=== PATIENT | male | born 1995 | race Caucasian/White ===

== ENCOUNTER 2021-04-20 19:18 | Emergency (ER) | payer OTHER, SELFPAY ==
[2021-04-20 19:31] VITALS: BP 120/66; PULSE 96; RESP 16; TEMP 36.1; O2SAT 99
--- NOTE | 2021-04-20 19:43 | ED.GENADULT ---
HPI - General Adult General Chief complaint: Extremity Problem,Nontraumatic Stated complaint: Rash on ankle Time Seen by Provider: 04/20/21 19:20 Source: patient Mode of arrival: ambulatory Limitations: no limitations History of Present Illness HPI narrative: Patient presents for evaluation of swelling to the right ankle. He indicates symptoms started 2 days ago. He initially sensed some pruritus circumferentially to the right ankle. He looked down and noted swelling to the affected area. He denies any recent trauma. He denies any posterior calf pain. No loss of range of motion. No paresthesias. No significant pain per se. 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 He states he does not inject into the lower extremities. No personal or family history of DVT or PE. He does smoke 1 pack/day. No surgeries within the last 4 weeks. Not on any hormone replacement therapy. Related Data Home Medications Medication Instructions Recorded Confirmed No Home Medications 04/20/21 04/20/21 Allergies Allergy/AdvReac Type Severity Reaction Status Date / Time No Known Allergies Allergy Verified 04/20/21 19:41 Review of Systems Review of Systems: Narrative: CONSTITUTIONAL: Denies fever, chills, or sweats. EYES: Denies visual changes, redness, or discharge. ENT: Denies rhinorrhea, congestion, sore throat, or otalgia. CARDIOVASCULAR: Reports swelling to the right ankle. Denies chest pain, palpitations RESPIRATORY: Denies cough or dyspnea. GASTROINTESTINAL: Denies abdominal pain, nausea, vomiting, or diarrhea. GENITOURINARY: Denies dysuria or hematuria. SKIN: Reports pruritus to right ankle MUSCULOSKELETAL: Denies back pain, joint pain, or myalgia. NEUROLOGIC: Denies headache, numbness, dizziness, or weakness. PSYCHIATRIC: Denies anxiety or depression. [facility] [place] Past Medical History Medical History (Updated 04/20/21 @ 19:53 by ANUSHA Polo, ) Methamphetamine use Surgical History Surgical History No pertinent past surgical history Family History Family History Mother No pertinent past medical history Social History Social History Smoking packs per day: 1 Smoking cigarettes per day: 20.0 Smoking status: Current every day smoker Tobacco type: cigarettes Alcohol intake: current Alcohol use details: socially Substance use: current Substance use type: amphetamines Living arrangements: with family Gender identity (if verbalized by the patient): Male Spiritual care concerns: No Exam Narrative: Exam Narrative: GENERAL: Well-appearing, well-nourished, and in no acute distress. HEAD: Normocephalic, atraumatic. EYES: PERRLA and EOMI. ENT: Nares clear, no rhinorrhea or epistaxis. Mucous membranes moist. Oropharynx without tonsillar hypertrophy exudate or other lesions. Bilateral TMs pearly mcpherson nonbulging NECK: Supple. No adenopathy or masses. No carotid bruits or JVD CHEST: Clear to auscultation. No respiratory distress. No wheezes rales or rhonchi HEART: Regular rate and rhythm. No murmur heard. Normal peripheral pulses. ABDOMEN: Soft, nontender, nondistended, normal active bowel sounds. EXTREMITIES: 1+ nonpitting edema L overlying the right lateral malleolus. There is no posterior calf tenderness. No cords. Normal range of motion. SKIN: Multiple close comedones to bilateral upper and lower extremities. There are track lema noted to the left upper extremity. There is some diffuse mild hyperpigmented changes noted overlying the right ankle. NEURO: No focal deficits. Alert and oriented x3. PSYCH: Normal mood and affect. Course Course Emergency Course: This is a 25-year-old male who presents with complaints of pruritus and swelling overlying the right lateral malleolus. He does
== END 2021-04-20 19:45 | disposition short-term general hospital (02) ==
PROVIDERS: Emergency Provider Nurse Practitioner
DX: M25.471 Effusion, right ankle (principal); F11.90 Opioid use, unspecified, uncomplicated; F17.210 Nicotine dependence, cigarettes, uncomplicated
CPT/HCPCS: 99212; G0463

== ENCOUNTER 2021-04-20 20:11 | Emergency (ER) | payer OTHER, SELFPAY ==
--- NOTE | ~2021-04-20 | XR_ITS ---
XR ankle RT min 3V 04/20/2021 20:40 INDICATION: Right ankle pain PROCEDURE: 4 views right ankle COMPARISON: No prior studies for comparison. FINDINGS: Fracture, dislocation or subluxation is not identified. The soft tissues appear within norm al limits. No foreign bodies are identified. IMPRESSION: 1: NO ACUTE BONE OR JOINT ABNORMALITY IDENTIFIED. Reviewed, dictated and finalized at location A.
[2021-04-20 20:28] VITALS: BP 134/77; PULSE 99; RESP 17; TEMP 37.1; O2SAT 100
--- NOTE | 2021-04-20 21:15 | ED.LOWEXIN ---
HPI - Extremity Injury (Lower) General Chief Complaint: Extremity Injury, Lower Stated Complaint: swelling to ankle Time Seen by Provider: 04/20/21 20:44 Source: patient Mode of arrival: ambulatory Limitations: no limitations History of Present Illness HPI Narrative: Patient is a 25-year-old male who presents complaining of swelling to right ankle. Patient reports initial pruritic rash to bilateral ankles. He reports rash started approximately 2 days ago. He reports increased swelling to right ankle x1 day. He denies pain. He denies all other complaints. He has no history of DVT. He denies injury. Patient has no significant medical history. Related Data Allergies Allergy/AdvReac Type Severity Reaction Status Date / Time No Known Allergies Allergy Verified 04/20/21 19:41 Review of Systems Review of Systems: Narrative: CONSTITUTIONAL: Denies fever, chills, or sweats. EYES: Denies visual changes, redness, or discharge. ENT: Denies rhinorrhea, congestion, sore throat, or otalgia. CARDIOVASCULAR: Denies chest pain, palpitations, or edema. RESPIRATORY: Denies cough or dyspnea. GASTROINTESTINAL: Denies abdominal pain, nausea, vomiting, or diarrhea. GENITOURINARY: Denies dysuria or hematuria. SKIN: Rash to bilateral ankles MUSCULOSKELETAL: Swelling in the right ankle NEUROLOGIC: Denies headache, numbness, dizziness, or weakness. PSYCHIATRIC: Denies anxiety or depression. [facility] Past Medical History Medical History Methamphetamine use Surgical History Surgical History No pertinent past surgical history Family History Family History Mother No pertinent past medical history Social History Social History Smoking packs per day: 1 Smoking cigarettes per day: 20.0 Smoking status: Current every day smoker Tobacco type: cigarettes Alcohol intake: current Alcohol use details: socially Substance use: current Substance use type: amphetamines Gender identity (if verbalized by the patient): Male Spiritual care concerns: No Comments At the time of signature, I have reviewed and agree with nursing past medical, surgical, social, and family history unless otherwise noted. Please see nursing chart for further information. There is no relevant family history pertinent to the presenting complaint. Exam Narrative: Exam Narrative: GENERAL: Well-appearing, well-nourished, and in no acute distress. HEAD: Normocephalic, atraumatic. EYES: EOMI. No redness or drainage. Conjunctiva are normal. ENT: Mucous membranes pink and moist. CHEST: No respiratory distress. HEART: Regular rate and rhythm. No murmur appreciated. Normal peripheral pulses. EXTREMITIES: Edema noted to right lateral ankle, no tenderness with palpation, distal sensation intact, good capillary refill, good pedal pulse SKIN: Healing rash to bilateral ankles, no open wounds NEURO: No focal deficits. Alert and oriented x3. Gait steady. PSYCH: Normal affect. No signs of depression or anxiety. Course Vital Signs Vital signs: Vital Signs Temperature 37.1 C 04/20/21 20:28 Pulse Rate 99 04/20/21 20:28 Respiratory Rate 17 04/20/21 20:28 Blood Pressure 134/77 04/20/21 20:28 Pulse Oximetry 100 04/20/21 20:28 Temperature 37.1 C 04/20/21 20:28 Pulse Rate 99 04/20/21 20:28 Respiratory Rate 17 04/20/21 20:28 Blood Pressure 134/77 04/20/21 20:28 Pulse Oximetry 100 04/20/21 20:28 Reviewed. Patient has been instructed to follow-up with his PCP regarding his blood pressure. MDM - Extremity Injury (Lower) MDM Narrative Medical decision making narrative: Patient's x-ray shows no acute osseous abnormality. Pablito wrap placed. Discussed elevation of extremity. Discussed hydrocortisone to rash and follow up w
[2021-04-20] MEDS: diphenhydrAMINE HCl CAP 25 MG CAPSULE PO (21:27)
[2021-04-20] MEDS: predniSONE 20 MG TABLET 40 MG PO (21:27)
== END 2021-04-20 21:57 | disposition home or self-care (01) ==
PROVIDERS: Emergency Provider Nurse Practitioner
DX: M25.471 Effusion, right ankle (principal); L23.9 Allergic contact dermatitis, unspecified cause; F17.210 Nicotine dependence, cigarettes, uncomplicated
CPT/HCPCS: 73610; 99283; A9270; J7512

== ENCOUNTER 2022-04-07 11:40 | Emergency (ER) | payer OTHER, SELFPAY ==
[2022-04-07 11:50] VITALS: BP 115/65; PULSE 115; RESP 16; TEMP 36.4; O2SAT 98
--- NOTE | 2022-04-07 12:37 | ED.SKABFB ---
HPI - Skin/Abscess/Foreign Bdy General Chief complaint: Skin/Abscess/Foreign Body Stated complaint: abcess eft arm pain Time Seen by Provider: 04/07/22 12:38 Source: patient Mode of arrival: ambulatory Limitations: no limitations History of Present Illness HPI narrative: 26 y/o male current IVDA presented for c/o abscess to left forearm x2 days. States he used a pimple removal tool twice, and expressed moderate amount of pus, then applied hydrogen peroxide and wrapped it with gauze. Denies n/v/d/f/c. No other reports of similar abscesses. Injects Meth. complaint: rash Related Data Allergies Allergy/AdvReac Type Severity Reaction Status Date / Time No Known Allergies Allergy Verified 04/07/22 11:57 Review of Systems Review of Systems: CONSTITUTIONAL: Denies body aches, fever, chills, or sweats. CARDIOVASCULAR: Denies chest pain, palpitations, or edema. RESPIRATORY: Denies cough or dyspnea. SKIN: reports LFA wound MUSCULOSKELETAL: Denies back pain, joint pain, or myalgia. NEUROLOGIC: Denies headache, numbness, tingling, or weakness. PSYCH: Denies depression or anxiety. [facility] Past Medical History Medical History Methamphetamine use Surgical History Surgical History No pertinent past surgical history Family History Family History Mother No pertinent past medical history Social History Social History Smoking packs per day: 1 Smoking cigarettes per day: 20.0 Smoking status: Current every day smoker Tobacco type: cigarettes Alcohol intake: current Alcohol use details: socially Substance use: current Substance use type: amphetamines Gender identity (if verbalized by the patient): Male Spiritual care concerns: No Comments At time of signature, I have reviewed and agree with nursing past medical, surgical, social and family history unless otherwise noted. Please see nursing chart for further information. There is no relevant family history pertinent to the presenting complaint Exam Narrative: GENERAL: Appears older than stated age ENT: Mucous membranes moist. CHEST: Clear to auscultation. No respiratory distress. HEART: Regular rate and rhythm. SKIN: Track lema to bilateral forearms. Left forearm with 1.5 cm diameter firm abscess without active drainage or fluctuance, surrounding induration and warmth of approx 9cm diameter NEURO: Alert and oriented x3. PSYCH: Normal mood and affect Course Course Emergency Course: Patient is aware of diagnosis, understands and agrees to treatment plan. Anticipatory guidance given. Patient agrees to follow-up as directed and is aware of reasons to seek care at the emergency department. Portions of this record may have been created with voice recognition software Level of Care: Express Care Visit Vital Signs Vital signs: Vital Signs Temperature 97.5 F L 04/07/22 11:50 Pulse Rate 115 H 04/07/22 11:50 Respiratory Rate 16 04/07/22 11:50 Blood Pressure 115/65 04/07/22 11:50 Pulse Oximetry 98 04/07/22 11:50 Oxygen Delivery Room Air 04/07/22 11:50 Temperature 97.5 F L 04/07/22 11:50 Pulse Rate 115 H 04/07/22 11:50 Respiratory Rate 16 04/07/22 11:50 Blood Pressure 115/65 04/07/22 11:50 Pulse Oximetry 98 04/07/22 11:50 Oxygen Delivery Room Air 04/07/22 11:50 Reviewed MDM - Skin/Abscess/Foreign Bdy MDM Narrative Medical decision making narrative: Abscess on LFA, I&D not indicated due to no fluctuance. Advised supportive measures and signs/symptoms to go to the ER. Pt is appropriate for outpt treatment and f/u.. Differential Diagnosis Differential diagnosis: Likely abscess of skin or subcutaneous tissue, urticaria, herpes zoster, cellulitis and contact dermatitis Discharge Plan
== END 2022-04-07 12:50 | disposition home or self-care (01) ==
PROVIDERS: Emergency Provider Nurse Practitioner Family
DX: L03.114 Cellulitis of left upper limb (principal); F17.210 Nicotine dependence, cigarettes, uncomplicated
CPT/HCPCS: 99213; G0463

== ENCOUNTER 2023-02-02 06:12 | Emergency (ER) | payer OTHER, SELFPAY ==
--- NOTE | ~2023-02-02 | XR_ITS ---
EXAMINATION: XR chest 2V DATE: 02/02/2023 08:37 INDICATION: 3 days of productive cough TECHNIQUE: PA and lateral views of the chest were obtained. COMPARISON: None FINDINGS: The lungs are clear with no focal airspace opacities, pulmonary edema, pleural effusion or pneumothor ax. The cardiomediastinal silhouette is normal. Mild upper thoracic levocurvature. IMPRESSION: 1. No acute cardiopulmonary disease. Reviewed, dictated and finalized at location A.
[2023-02-02 06:13] VITALS: BP 124/63; PULSE 98; RESP 18; TEMP 36.2; O2SAT 100
--- NOTE | 2023-02-02 07:11 | ED.URI ---
HPI - URI/Sore Throat General Chief Complaint: Upper Respiratory Infection Stated Complaint: cough for 1 week Time Seen by Provider: 02/02/23 07:06 Source: patient Mode of arrival: ambulatory Limitations: no limitations History of Present Illness HPI Narrative: Patient is a 27-year-old male with a history of IV methamphetamine use, marijuana use, smoker, presenting to the emergency department for evaluation of cough. Patient reports cough over the past week. Initially began with runny nose and congestion, cough was initially dry and then has become more productive. Characterized by up to 40-minute coughing fits per patient. Patient denies any current chest pain. Denies shortness of breath at rest. No ripping or tearing sensation to the flank, shoulder, neck. Patient denies history of pneumonia. He denies history of asthma. Denies wheezing. Patient denies leg swelling or calf pain. He denies fever or chills. Last methamphetamine use was overnight. Patient denies opiate use. Reports occasional alcohol use. Related Data Allergies Allergy/AdvReac Type Severity Reaction Status Date / Time No Known Allergies Allergy Verified 02/02/23 06:26 Review of Systems Review of Systems: CONSTITUTIONAL: Denies fever, chills, or sweats. EYES: Denies visual changes, redness, or discharge. ENT: Reports rhinorrhea and congestion, denies sore throat, or otalgia. CARDIOVASCULAR: Denies chest pain, palpitations, or edema. RESPIRATORY: Reports cough, denies shortness of breath GASTROINTESTINAL: Denies abdominal pain, nausea, vomiting, or diarrhea. GENITOURINARY: Denies dysuria or hematuria. SKIN: Denies rash or itching. MUSCULOSKELETAL: Denies back pain, joint pain, or myalgia. NEUROLOGIC: Denies headache, numbness, or weakness. [facility] Past Medical History Medical History Methamphetamine use Surgical History Surgical History No pertinent past surgical history Family History Family History Mother No pertinent past medical history Social History Social History Smoking packs per day: 1 Smoking cigarettes per day: 20.0 Smoking status: Current every day smoker Tobacco type: cigarettes Alcohol intake: current Alcohol use details: socially Substance use: current Substance use type: amphetamines Living arrangements: with family Gender identity (if verbalized by the patient): Male Spiritual care concerns: No Exam Narrative: GENERAL: Awake, alert, conversant HEAD: Normocephalic, atraumatic. EYES: PERRLA and EOMI. ENT: Nares clear, no rhinorrhea or epistaxis. Mucous membranes moist. NECK: Supple. CHEST: No respiratory distress, breathing even and non labored, coarse breath sounds bilaterally without wheezing, rhonchi, rales HEART: Regular rate, sinus rhythm ABDOMEN:Non distended, non tender EXTREMITIES: Normal range of motion. No edema. No petechiae. No [place] lesions. No Osler's nodes. SKIN: Warm, dry, no rash. NEURO:No focal deficits. Alert and oriented x3 Course Vital Signs Vital signs: Vital Signs Temperature 36.2 C L 02/02/23 06:13 Pulse Rate 98 02/02/23 06:13 Respiratory Rate 18 02/02/23 06:13 Blood Pressure 124/63 02/02/23 06:13 Pulse Oximetry 100 02/02/23 06:13 Oxygen Delivery Room Air 02/02/23 06:13 Temperature 36.2 C L 02/02/23 06:13 Pulse Rate 85 02/02/23 09:36 Respiratory Rate 16 02/02/23 09:36 Blood Pressure 124/63 02/02/23 06:13 Pulse Oximetry 100 02/02/23 09:36 Oxygen Delivery Room Air 02/02/23 07:32 MDM - URI/Sore Throat MDM Narrative Medical decision making narrative: Medical decision making narrative: -Presentation: Patient is a 27-year-old male presenting for evaluation of cough, congestion. At the time o
[2023-02-02 07:28] VITALS: PULSE 97; RESP 18; O2SAT 99
[2023-02-02 07:32] VITALS: O2SAT 99
--- NOTE | 2023-02-02 07:50 | ECG_ITS ---
Measurements Intervals Tiona Rate: 86 P: 72 HI: 132 QRS: 78 QRSD: 104 T: 63 QT: 347 QTc: 416 Interpretive Statements SINUS RHYTHM NORMAL ECG NO PREVIOUS ECG AVAILABLE FOR COMPARISON Electronically Signed On 02-02-2023 14:41:34 CDT by Hossein Nails M.D.
[2023-02-02 07:55] VITALS: PULSE 79; RESP 18
[2023-02-02] MEDS: IPRATROPIUM BR 0.02% INH SOLN 0.5 MG/2.5 ML VIAL INHALATION (07:56)
[2023-02-02] MEDS: LEVALBUTEROL NEB 1.25 MG/3 ML INHALATION (07:56)
[2023-02-02 09:01] LABS: Basophils Percent Auto 0.3 % (0.2-1.2); Eosinophils Absolute Auto 0.2 K/mm3 (0-0.3); Eosinophils Percent Auto 2.5 % (0-4.4); Hematocrit 44.5 % (42.0-52.0); Hemoglobin 14.6 g/dL (14.0-18.0); Immature Granulocyte Absolute 0.01 K/mm3 (0.00-0.031); Immature Granulocyte Percent A 0.2 % (0-0.5); Lymphocytes Absolute Auto 2.64 K/mm3 (0.9-3.2); Lymphocytes Percent Auto 40.8 % (18.3-44.2); Mean Corpuscular HGB Conc 32.8 g/dl (32-36); Mean Corpuscular Hemoglobin 29.3 pg (26-34); Mean Corpuscular Volume 89.2 fl (80-100); Mean Platelet Volume 9.6 fl (7.4-10.4); Monocytes Absolute Auto 0.6 K/mm3 (0.1-0.6); Monocytes Percent Auto 8.5 % (2.6-8.5); Neutrophils Absolute Auto 3.1 K/mm3 (1.3-6.7); Neutrophils Percent Auto 47.7 % (45.5-73.1); Platelet Count Result 245 k/mm3 (150-375); Red Blood Count 4.99 M/mm3 (4.6-6.20); Red Cell Distribution Width 13.4 % (11.5-14.5); White Blood Count 6.5 K/mm3 (4.5-10.0)
[2023-02-02 09:10] LABS: Alanine Aminotransferase 20 U/L (6-50); Albumin Level 4.6 g/dL (3.5-5.1); Alkaline Phosphatase 89 U/L (38-126); Anion Gap 8 mmol/L (8-16); Aspartate Amino Transferase 28 U/L (17-59); Bilirubin,Total 0.7 mg/dL (0.2-1.3); Blood Urea Nitrogen 14 mg/dL (9-20); Calcium 9.1 mg/dL (8.4-10.2); Carbon Dioxide 28 mmol/L (22-30); Chloride 105 mmol/L (98-107); Estimated CRCL calculation 80 ml/min; Estimated Glomerular Filt Rate > 60; Glucose 95 mg/dL (65-110); Potassium 3.9 mmol/L (3.4-5.0); Sodium 141 mmol/L (137-145)
[2023-02-02 09:36] VITALS: PULSE 85; RESP 16; O2SAT 100
[2023-02-02 10:33] LABS: Influenza A QL RT-PCR Negative (Negative); Influenza B QL RT-PCR Negative (Negative); RSV RNA, RT-PCR Negative (Negative); SARS-CoV-2 RNA PCR Negative (Negative)
== END 2023-02-02 09:37 | disposition home or self-care (01) ==
PROVIDERS: Emergency Provider Emergency Medicine
DX: J06.9 Acute upper respiratory infection, unspecified (principal); J40 Bronchitis, not specified as acute or chronic; Z20.822 Contact with and (suspected) exposure to COVID-19; F17.210 Nicotine dependence, cigarettes, uncomplicated
CPT/HCPCS: 36415; 71046; 80053; 85025; 87637; 93005; 94640; 99283

== ENCOUNTER 2023-07-18 14:24 | Emergency (ER) | payer OTHER, SELFPAY ==
--- NOTE | 2023-07-18 14:34 | ED.SKABFB ---
HPI - Skin/Abscess/Foreign Bdy General Chief complaint: Skin/Abscess/Foreign Body Stated complaint: rash on left arm Time Seen by Provider: 07/18/23 14:40 Source: patient Mode of arrival: ambulatory Limitations: no limitations History of Present Illness HPI narrative: Lalit is a 27-year-old male patient presenting to the clinic today with complaints of a rash to his left antecubital. He reports he is an IV drug user and has injected methamphetamine. He is concerned as he is having redness around his injection site. Denies any itching, pain, or fever Related Data Allergies Allergy/AdvReac Type Severity Reaction Status Date / Time No Known Allergies Allergy Verified 07/18/23 14:28 Review of Systems Review of Systems: Pertinent positives per HPI. Patient denies any fever, chills, headache, visual changes, dizziness, cough, runny nose, sore throat, shortness of breath, chest pain, palpitations, nausea, vomiting, diarrhea, constipation, abdominal pain, or any urinary issues. PMFSH Past Medical History Medical History Methamphetamine use Surgical History Surgical History No pertinent past surgical history Family History Family History Mother No pertinent past medical history Social History Social History Smoking packs per day: 1 Smoking cigarettes per day: 20.0 Smoking status: Current every day smoker Tobacco type: cigarettes Alcohol intake: current Alcohol use details: socially Substance use: current Substance use type: amphetamines Living arrangements: with family Gender identity (if verbalized by the patient): Male Spiritual care concerns: No Comments At the time of my signature, I reviewed and agree with the nursing past medical, surgical, social, and family history. There is no relevant family history pertinent to the patient complaint. Exam Narrative: General: Well-developed, well nourished, in no apparent distress Head: Normocephalic, atraumatic. Cardio: Regular rate and rhythm, s1 and s2 normal, no murmur appreciated. Resp: Clear to auscultation bilaterally, no rhonchi, rales, wheezing or rubs. Integumentary: [place], warm, and dry, intact without lesion, no erythema, induration, or pain to palpation, skin rash was smooth without any sign of lesions, no drainage, appears as a dermatitis Course Course Emergency Course: Portions of this record may have been created with voice recognition software. Level of Care: Express Care Visit Vital Signs Vital signs: Vital signs reviewed MDM - Skin/Abscess/Foreign Bdy MDM Narrative Medical decision making narrative: At the time of visit patient is resting comfortably on the exam table. Triamcinolone cream was prescribed. I suspect patient has dermatitis to the left antecubital. Supportive measures were discussed with the patient and he voiced understanding discharge instructions encouraged patient to quit doing IV drugs Differential Diagnosis Differential diagnosis: Likely other (IV drug user, dermatitis, skin infection, abscess, cellulitis) Discharge Plan Discharge Clinical Impression: Methamphetamine use, Dermatitis Patient Disposition: Home, Self-Care Condition: Stable Instructions: Antibiotic Form, Dermatitis (ED) Additional Instructions: Avoid using IV drugs Apply triamcinolone cream to the affected area twice daily x7 days Watch for signs and symptoms of infection which include fever, increase in swelling, increasing redness, increasing pain, purulent discharge, or streaking Recommend going to the ER if you develop any signs or symptoms of infection immediately. Prescriptions: New triamcinolone acetonide 0.1 % cream 1 applic topical BID 7 Days Qty: 30 0RF No Actio
[2023-07-18 14:37] VITALS: BP 121/62; PULSE 101; RESP 16; TEMP 36.5; O2SAT 98
== END 2023-07-18 14:50 | disposition home or self-care (01) ==
PROVIDERS: Emergency Provider Nurse Practitioner Family
DX: F15.90 Other stimulant use, unspecified, uncomplicated (principal); L30.9 Dermatitis, unspecified; F17.210 Nicotine dependence, cigarettes, uncomplicated
CPT/HCPCS: 99213; G0463

== ENCOUNTER 2023-10-13 10:20 | Emergency (ER) | payer OTHER, SELFPAY ==
--- NOTE | 2023-10-13 10:24 | ED.URI ---
HPI - URI/Sore Throat General Chief Complaint: Upper Respiratory Infection Stated Complaint: cough,face swollen Time Seen by Provider: 10/13/23 10:24 Source: patient Mode of arrival: ambulatory Limitations: no limitations History of Present Illness HPI Narrative: Lalit is a 28-year-old male patient presenting to the clinic today with complaints of cough with facial swelling. He reports he has had a lot of left-sided nasal congestion. Also complains of dental pain to the posterior molar. Has facial swelling that just started yesterday. States he gets a lot abscesses. History of meth and Xanax abuse. MD elicited complaint: sore throat and nasal congestion Related Data Allergies Allergy/AdvReac Type Severity Reaction Status Date / Time No Known Allergies Allergy Verified 10/13/23 10:34 Review of Systems Review of Systems: Pertinent positives per HPI. Patient denies any fever, chills, rash, headache, visual changes, dizziness,shortness of breath, chest pain, palpitations, nausea, vomiting, diarrhea, constipation, abdominal pain, or any urinary issues. PMFSH Past Medical History Medical History Methamphetamine use Surgical History Surgical History No pertinent past surgical history Family History Family History Mother No pertinent past medical history Social History Social History Smoking packs per day: 1 Smoking cigarettes per day: 20.0 Smoking status: Current every day smoker Tobacco type: cigarettes Alcohol intake: current Alcohol use details: socially Substance use: current Substance use type: amphetamines Living arrangements: with family Gender identity (if verbalized by the patient): Male Spiritual care concerns: No Comments At the time of my signature, I reviewed and agree with the nursing past medical, surgical, social, and family history. There is no relevant family history pertinent to the patient complaint. Exam Narrative: General: Well-developed, well nourished, in no apparent distress Head: Normocephalic, atraumatic Eyes: Pupils equally round and reactive to light bilaterally, EOM intact, sclera and conjunctive clear, no discharge, lids normal Ears: TMs intact and clear, ear canals clear, no drainage, grossly hearing normal. Nose: Nares patent, no discharge, no inflammation, no sinus tenderness. Mouth: Oral pharynx without lesions or masses,poor dentition, MMM. Pain to number 16 with gingival swelling-mild swelling into the sinus cavity Neck: Supple, trachea midline, no enlargement of anterior or posterior cervical nodes, no thyroid masses or goiter palpable. Cardio: Regular rate and rhythm, s1 and s2 normal, no murmur appreciated. Resp: Clear to auscultation bilaterally, no rhonchi, rales, wheezing or rubs Course Course Emergency Course: Portions of this record may have been created with voice recognition software. Level of Care: Express Care Visit Vital Signs Vital signs: Vital signs reviewed MDM - URI/Sore Throat MDM Narrative Medical decision making narrative: At the time of visit patient is resting comfortably on the exam table. Patient appears to be nontoxic. Discussed sending patient to the ER for further evaluation (CT sinuses) to rule out abscess and he declined and states that he would rather be treated here with an injection of antibiotics and starting oral antibiotics. Will give Rocephin [address] the patient on clindamycin for 10 days. Supportive measures were discussed with the patient and they voiced understanding discharge instructions and agrees to treatment plan. Strict return precautions reviewed Differential Diagnosis Differential diagnosis: Likely upper respiratory infection, otitis media, si
[2023-10-13 10:28] VITALS: BP 118/78; PULSE 122; RESP 16; TEMP 37.9; O2SAT 99
[2023-10-13] MEDS: cefTRIAXone 1 GM, LIDOCAINE HCL 1% LOCAL INJ 2.1 ML IM (11:20)
== END 2023-10-13 11:38 | disposition home or self-care (01) ==
PROVIDERS: Emergency Provider Nurse Practitioner Family
DX: K04.7 Periapical abscess without sinus (principal); F17.210 Nicotine dependence, cigarettes, uncomplicated
CPT/HCPCS: 96372; 99213; G0463; J0696

== ENCOUNTER 2023-11-15 15:03 | Emergency (ER) | payer OTHER, SELFPAY ==
--- NOTE | ~2023-11-15 | XR_ITS ---
EXAMINATION: XR clavicle LT DATE: 11/15/2023 15:35 INDICATION: Anterior left clavicle pain post fall 3 days prior TECHNIQUE: AP and angled AP views of the left clavicle were obtained. COMPARISON: None. FINDINGS: 22 degrees upper thoracic levoscoliosis. Normal alignment at the left shoulder. No fracture. Left gle nohumeral and acromioclavicular joint spaces appear normal. Soft tissues are unremarkable. Visualized portion of the lungs are clear. IMPRESSION: 1. 22 degree upper thoracic levoscoliosis. Otherwise unremarkable left clavicle radiographs. Reviewed, dictated and finalized at location A. SPECIALIST
[2023-11-15 15:12] VITALS: BP 124/77; PULSE 108; RESP 16; TEMP 37.3; O2SAT 98
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
== END 2023-11-15 15:55 | disposition home or self-care (01) ==
PROVIDERS: Emergency Provider Nurse Practitioner Family
DX: S43.402A Unspecified sprain of left shoulder joint, initial encounter (principal); V19.9XXA Pedal cyclist (driver) (passenger) injured in unspecified traffic accident, initial encounter; F17.210 Nicotine dependence, cigarettes, uncomplicated
CPT/HCPCS: 73000; 99213; G0463

== ENCOUNTER 2023-11-21 18:24 | Emergency (ER) | payer OTHER, SELFPAY ==
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
[2023-11-21 18:31] VITALS: BP 137/69; PULSE 110; RESP 16; TEMP 36.9; O2SAT 98
== END 2023-11-21 18:40 | disposition home or self-care (01) ==
PROVIDERS: Emergency Provider Nurse Practitioner Family
DX: M25.512 Pain in left shoulder (principal); F17.210 Nicotine dependence, cigarettes, uncomplicated
CPT/HCPCS: 99212; G0463